=== PATIENT | male | born 1975 | race Caucasian/White ===

== ENCOUNTER 2016-09-30 12:40 | Emergency (ER) | payer MEDICAID, OTHER ==
[2016-09-30 12:40] VITALS: BMI 22.7
[2016-09-30 12:49] VITALS: BP 103/66; PULSE 91; RESP 18; TEMP 97.4; O2SAT 100
--- NOTE | 2016-09-30 13:10 | C.PDOC ---
History Of Present Illness 40 y/o male brought to ED by EMS for public intoxication. Patient denies any injury or pain on arrival. Denies suicidal ideation, homicidal ideation, or any other complaints. Time Seen by Provider: 09/30/16 13:07 Chief Complaint (Nursing): Substance Abuse History Per: Patient History/Exam Limitations: no limitations Current Symptoms Are (Timing): Still Present Modifying Factor(s): Alcohol Associated Symptoms: denies: Suicidal Thoughts, Suicidal Plan Recent travel outside of the [place]: No Past Medical History Reviewed: Historical Data, Nursing Documentation, Vital Signs Vital Signs: Last Vital Signs Temp 97.4 F L 09/30/16 12:44 Pulse 91 H 09/30/16 12:44 Resp 18 09/30/16 12:44 BP 103/66 09/30/16 12:44 Pulse Ox 100 09/30/16 13:10 - Medical History PMH: Depression, Schizophrenia - [facility] Procedures INDIVID PSYCHOTHERAP NEC (12/29/13) OTHER GROUP THERAPY (12/29/13) PSYCHIAT DRUG THERAP NEC (01/22/14) Family History: States: Unknown Family Hx - Social History Hx Tobacco Use: No (DENIES) Hx Alcohol Use: Yes Hx Substance Use: No (DENIES) Review Of Systems Except As Marked, All Systems Reviewed And Found Negative. Constitutional: Negative for: Fever Cardiovascular: Negative for: Chest Pain, Palpitations Respiratory: Negative for: Cough, Shortness of Breath Skin: Negative for: Rash Neurological: Negative for: Headache, Dizziness Physical Exam - Physical Exam Appears: Non-toxic, No Acute Distress, Other (mildly intoxicated, interacting, no acute distress) Skin: Warm, Dry Head: Atraumatic, Normacephalic Chest: Symmetrical Cardiovascular: Rhythm Regular Respiratory: Normal Breath Sounds, No Rales, No Rhonchi, No Wheezing Gastrointestinal/Abdominal: Soft, No Tenderness Back: Normal Inspection Extremity: Normal ROM Neurological/Psych: Oriented x3 ED Course And Treatment O2 Sat by Pulse Oximetry: 100 (RA) Pulse Ox Interpretation: Normal Medical Decision Making Medical Decision Making: persistent etoh abuse. declines etoh detox today has a penitentiary to go to [facility]. List given for other penitentiary options. Disposition Doctor Will See Patient In The: Office Counseled Patient/Family Regarding: Studies Performed, Diagnosis - Disposition Referrals: Alcoholics Anonymous [Outside] [facility] at [facility] [Outside] [facility] [Outside] Disposition: HOME/ ROUTINE Disposition Time: 13:10 Condition: GOOD Additional Instructions: seek local penitentiary placement, lists given. Instructions: Abuse of Alcohol (ED) - Clinical Impression Clinical Impression: Alcohol abuse - Scribe Statement The provider has reviewed the documentation as recorded by the Scribe Yosi Ross Provider Attestation: Provider Scribe Attestation: All medical record entries made by the Scribe were at my direction and personally dictated by me. I have reviewed the chart and agree that the record accurately reflects my personal performance of the history, physical exam, medical decision making, and the department course for this patient. I have also personally directed, reviewed, and agree with the discharge instructions and disposition.
== END 2016-09-30 13:25 | disposition home or self-care (01) ==
LOC: C.ER 12:40
DX: F10.10 Alcohol abuse, uncomplicated (principal)

== ENCOUNTER 2017-08-28 01:42 | Emergency (ER) | payer MEDICAID, OTHER ==
[2017-08-28 01:42] VITALS: BMI 22.7
[2017-08-28 02:47] VITALS: O2SAT 97
--- NOTE | 2017-08-28 03:32 | C.PDOC ---
History Of Present Illness 41 year old male with hx of alcohol abuse presents to the ED brought in by his mother for alcohol detox. Per mother, patient has been staying with her for the past 2 weeks and has not had a drink in that time until last night. Patient denies any complaints at this time. Last drink last night. Time Seen by Provider: 08/28/17 02:51 Chief Complaint (Nursing): Substance Abuse History Per: Patient, Family History/Exam Limitations: no limitations Onset/Duration Of Symptoms: Hrs, Unknown Suicide/Self Injury Attempted (Context): None Modifying Factor(s): Alcohol Associated Symptoms: denies: Suicidal Thoughts, Suicidal Plan Involuntary Hold By: None Recent travel outside of the [place]: No Past Medical History Reviewed: Historical Data, Nursing Documentation, Vital Signs Vital Signs: Last Vital Signs Temp 97.6 F 08/28/17 02:41 Pulse 72 08/28/17 02:41 Resp 20 08/28/17 02:41 BP 104/63 08/28/17 02:41 Pulse Ox 97 08/28/17 04:06 - Medical History PMH: Depression, Schizophrenia Denies: Diabetes, Hepatitis, HIV, HTN, Seizures, Sexually Transmitted Disease - [facility] Procedures INDIVID PSYCHOTHERAP NEC (12/29/13) OTHER GROUP THERAPY (12/29/13) PSYCHIAT DRUG THERAP NEC (01/22/14) Family History: States: Unknown Family Hx - Social History Hx Tobacco Use: No (DENIES) Hx Alcohol Use: Yes Hx Substance Use: No (DENIES) Review Of Systems Constitutional: Negative for: Fever, Chills ENT: Negative for: Ear Pain, Throat Pain Cardiovascular: Negative for: Chest Pain Respiratory: Negative for: Cough, Shortness of Breath Gastrointestinal: Negative for: Nausea, Vomiting, Abdominal Pain, Diarrhea Skin: Negative for: Rash Neurological: Negative for: Headache Psych: Positive for: Other (Alcohol intoxication). Negative for: Suicidal ideation Physical Exam - Physical Exam Appears: Non-toxic, No Acute Distress, Unkempt (disheveled) Skin: Normal Color, Warm, Dry Head: Atraumatic, Normacephalic Eye(s): bilateral: Normal Inspection, PERRL, EOMI Oral Mucosa: Moist Neck: Normal ROM, Supple Chest: Symmetrical Cardiovascular: Rhythm Regular Respiratory: Normal Breath Sounds, No Rales, No Rhonchi, No Wheezing Back: Normal Inspection Extremity: Normal ROM, No Deformity Extremity: Bilateral: Atraumatic Neurological/Psych: Oriented x3, Normal Speech Gait: Steady ED Course And Treatment O2 Sat by Pulse Oximetry: 97 Pulse Ox Interpretation: Normal Progress Note: Spoke with detox; there are no beds available. Pt remained stable. Will give patient number for crisis in order to be pre screened for detox. Pt d/c in company of his mother Disposition Counseled Patient/Family Regarding: Diagnosis, Need For Followup, Rx Given - Disposition Disposition: HOME/ ROUTINE Disposition Time: 04:08 Condition: STABLE Additional Instructions: PLEASE CALL [phone] TO BE PLACED ON LIST FOR DETOX BED RETURN TO ER IF WORSE Instructions: Effects of Alcohol on Your Health Forms: [facility] (Lithuanian) Print Language: MACEDONIAN - Clinical Impression Clinical Impression: Alcohol abuse - Scribe Statement The provider has reviewed the documentation as recorded by the Scribe (Jhony Copeland) All medical record entries made by the Scribe were at my direction and personally dictated by me. I have reviewed the chart and agree that the record accurately reflects my personal performance of the history, physical exam, medical decision making, and the department course for this patient. I have also personally directed, reviewed, and agree with the discharge instructions and disposition.
[2017-08-28 07:16] VITALS: BP 130/70; PULSE 80; RESP 14; TEMP 97.5
== END 2017-08-28 05:30 | disposition home or self-care (01) ==
LOC: C.ER 01:42
DX: F10.10 Alcohol abuse, uncomplicated (principal)

== ENCOUNTER 2017-09-30 06:01 | Emergency (ER) | payer MEDICAID, OTHER ==
[2017-09-30 06:01] VITALS: BMI 22.7
[2017-09-30 06:08] VITALS: RESP 18; TEMP 98.2
--- NOTE | 2017-09-30 07:32 | C.PDOC ---
History Of Present Illness 41 y/o male brought to ER by ambulance for public intoxication. Patient was found in the street with soiled clothing and baggage. Patient admits to drinking alcohol today, but denies physical complaints. Her denies suicidal/ homicidal ideations. Time Seen by Provider: 09/30/17 07:05 Chief Complaint (Nursing): Substance Abuse History Per: Patient History/Exam Limitations: no limitations Onset/Duration Of Symptoms: Hrs Current Symptoms Are (Timing): Still Present Modifying Factor(s): Alcohol Severity: Moderate Past Medical History Reviewed: Historical Data, Nursing Documentation, Vital Signs Vital Signs: Last Vital Signs Temp 98.2 F 09/30/17 06:04 Pulse 82 09/30/17 14:15 Resp 18 09/30/17 14:15 BP 102/61 09/30/17 14:15 Pulse Ox 97 09/30/17 14:20 - Medical History PMH: Depression, Schizophrenia Surgical History: No Surg Hx - [facility] Procedures INDIVID PSYCHOTHERAP NEC (12/29/13) OTHER GROUP THERAPY (12/29/13) PSYCHIAT DRUG THERAP NEC (01/22/14) Family History: States: No Known Family Hx - Social History Hx Tobacco Use: No (DENIES) Hx Alcohol Use: Yes Hx Substance Use: No (DENIES) Review Of Systems Except As Marked, All Systems Reviewed And Found Negative. Cardiovascular: Negative for: Chest Pain Respiratory: Negative for: Shortness of Breath Neurological: Negative for: Headache Psych: Positive for: Other (alcoho intoxication). Negative for: Suicidal ideation Physical Exam - Physical Exam Appears: Non-toxic, Other (smells of ETOH and appears intoxicated) Skin: Normal Color, Warm Head: Atraumatic, Normacephalic Eye(s): bilateral: Normal Inspection, PERRL, EOMI Nose: Normal Oral Mucosa: Moist Neck: Normal, Normal ROM, No Midline Cervical Tenderness, No Paracervical Tenderness, No Step Off Deformity, Supple Cardiovascular: Rhythm Regular Respiratory: Normal Breath Sounds, No Rales, No Rhonchi, No Wheezing Gastrointestinal/Abdominal: Normal Exam, Bowel Sounds, Soft, No Tenderness Extremity: Normal ROM Extremity: Bilateral: Atraumatic, Normal Color And Temperature, Normal ROM Neurological/Psych: Other (awake, alert, intoxicated, moving all 4 extremities spontaneously) ED Course And Treatment O2 Sat by Pulse Oximetry: 97 (RA) Pulse Ox Interpretation: Normal Progress Note: Accucheck ordered and reviewed. Patient pending sobriety. 9: 30am - Patient arousable to verbal stimuli. Pending sobriety. 11:45am - Patient sleeping on stretcher, intoxicated, arousable to verbal stimuli Reevaluation Time: 14:15 Reassessment Condition: Improved (Patient currently AAOx3, ambulating normally in ED. Patient clinically sober at this time, will discharge.) Disposition - Disposition Disposition: HOME/ ROUTINE Disposition Time: 14:15 Condition: STABLE Instructions: Alcohol Abuse and Alcoholism (DC) Forms: [facility] (Urdu), General Discharge Instructions Print Language: PORTUGUESE - Clinical Impression Clinical Impression: Alcohol abuse with intoxication - Scribe Statement The provider has reviewed the documentation as recorded by the Leenaibe Gabriela Lion Provider Attestation: All medical record entries made by the Scribe were at my direction and personally dictated by me. I have reviewed the chart and agree that the record accurately reflects my personal performance of the history, physical exam, medical decision making, and the department course for this patient. I have also personally directed, reviewed, and agree with the discharge instructions and disposition.
[2017-09-30 14:16] VITALS: BP 102/61; PULSE 82
[2017-09-30 14:20] VITALS: O2SAT 97
== END 2017-09-30 14:25 | disposition home or self-care (01) ==
LOC: SUPCPDRO 06:01 → C.ER 06:01
DX: F10.129 Alcohol abuse with intoxication, unspecified (principal); Y90.9 Presence of alcohol in blood, level not specified

== ENCOUNTER 2018-08-19 20:23 | Emergency (ER) | payer MEDICAID, OTHER ==
[2018-08-19 20:25] VITALS: BMI 22.7
--- NOTE | 2018-08-19 21:22 | C.PDOC ---
History Of Present Illness 42 year old male is brought into the emergency department via ambulance for intoxication at homeless residential. Patient was told that he could not stay at the residential due to his intoxication. Limited history. Time Seen by Provider: 08/19/18 20:32 Chief Complaint (Nursing): Substance Abuse History Per: Patient History/Exam Limitations: intoxication Onset/Duration Of Symptoms: Hrs Current Symptoms Are (Timing): Still Present Modifying Factor(s): Alcohol Additional History Per: EMS Past Medical History Reviewed: Historical Data, Nursing Documentation, Vital Signs Vital Signs: Last Vital Signs Temp 98.6 F 08/19/18 20:30 Pulse 88 08/19/18 20:30 Resp 18 08/19/18 20:30 BP 128/79 08/19/18 20:30 Pulse Ox 96 08/19/18 20:30 - Medical History PMH: Depression, Schizophrenia Denies: Diabetes, Hepatitis, HIV, HTN, Seizures, Sexually Transmitted Disease Surgical History: No Surg Hx - [facility] Procedures INDIVID PSYCHOTHERAP NEC (12/29/13) OTHER GROUP THERAPY (12/29/13) PSYCHIAT DRUG THERAP NEC (01/22/14) Family History: States: Unknown Family Hx - Social History Hx Tobacco Use: No (DENIES) Hx Alcohol Use: Yes Hx Substance Use: No (DENIES) Review Of Systems Review Of Systems: ROS cannot be obtained secondary to pt's inabilty to answer questions. Physical Exam - Physical Exam Appears: Non-toxic, No Acute Distress, Other (stuperous, soaked in urine) Skin: Normal Color, Warm, Dry Head: Atraumatic, Normacephalic Eye(s): bilateral: Normal Inspection, PERRL, EOMI Oral Mucosa: Moist, Other (alcohol on breath) Throat: Normal, No Erythema, No Exudate Neck: Normal, Supple Chest: Symmetrical, No Tenderness Cardiovascular: Rhythm Regular, No Murmur Respiratory: Normal Breath Sounds, No Rales, No Rhonchi, No Wheezing Gastrointestinal/Abdominal: Soft, No Tenderness Neurological/Psych: Oriented x3 Gait: Unsteady ED Course And Treatment O2 Sat by Pulse Oximetry: 96 (RA) Pulse Ox Interpretation: Normal Reevaluation Time: 06:00 (noted eloped from ED) Medical Decision Making Medical Decision Making: Plan; Glucose POC Disposition Doctor Will See Patient In The: Office Counseled Patient/Family Regarding: Studies Performed, Diagnosis - Disposition Disposition: HOME/ ROUTINE Disposition Time: 06:00 Condition: GOOD Forms: [facility] (Turkish) - Clinical Impression Clinical Impression: Alcohol abuse with intoxication - Scribe Statement The provider has reviewed the documentation as recorded by the Scribe (Abdirashid Roberts) Provider Attestation: All medical record entries made by the Scribe were at my direction and personally dictated by me. I have reviewed the chart and agree that the record accurately reflects my personal performance of the history, physical exam, medical decision making, and the department course for this patient. I have also personally directed, reviewed, and agree with the discharge instructions and disposition.
[2018-08-20 00:40] VITALS: RESP 16
[2018-08-20 04:26] VITALS: BP 112/72; PULSE 82; TEMP 97.9
[2018-08-20 06:01] VITALS: O2SAT 96
== END 2018-08-20 05:50 | disposition home or self-care (01) ==
LOC: C.ER 20:23
DX: F10.129 Alcohol abuse with intoxication, unspecified (principal); F20.9 Schizophrenia, unspecified

== ENCOUNTER 2018-09-23 22:52 | Emergency (ER) | payer SELFPAY ==
[2018-09-23 22:52] VITALS: BMI 22.7
--- NOTE | 2018-09-23 23:14 | C.PDOC ---
History Of Present Illness 42 year old male presents to the ED via EMS after [facility] jail sleeping. Patient notes currently under the influence of alcohol. He denies any trauma or fall. Patient denies any active complaints at this time. Time Seen by Provider: 09/23/18 22:57 Chief Complaint (Nursing): Substance Abuse History Per: Patient History/Exam Limitations: intoxication Onset/Duration Of Symptoms: Hrs Current Symptoms Are (Timing): Still Present Suicide/Self Injury Attempted (Context): None Modifying Factor(s): Alcohol Associated Symptoms: denies: Suicidal Thoughts, Suicidal Plan Additional History Per: EMS Past Medical History Reviewed: Historical Data, Nursing Documentation, Vital Signs Vital Signs: Last Vital Signs Temp 98.5 F 09/23/18 23:01 Pulse 81 09/23/18 23:01 Resp 16 09/23/18 23:01 BP 138/88 09/23/18 23:01 Pulse Ox 98 09/23/18 23:01 - Medical History PMH: Depression, Schizophrenia Denies: Diabetes, Hepatitis, HIV, HTN, Chronic Kidney Disease, Seizures, Sexually Transmitted Disease Surgical History: No Surg Hx - [facility] Procedures INDIVID PSYCHOTHERAP NEC (12/29/13) OTHER GROUP THERAPY (12/29/13) PSYCHIAT DRUG THERAP NEC (01/22/14) Family History: States: No Known Family Hx - Social History Hx Tobacco Use: No (DENIES) Hx Alcohol Use: Yes Hx Substance Use: No (DENIES) Review Of Systems Constitutional: Negative for: Fever Cardiovascular: Negative for: Chest Pain Respiratory: Negative for: Cough, Shortness of Breath Gastrointestinal: Negative for: Nausea, Vomiting, Abdominal Pain, Diarrhea Neurological: Positive for: Other (alcohol intoxication) Physical Exam - Physical Exam Appears: Non-toxic, No Acute Distress Skin: Normal Color, Warm, Dry Head: Atraumatic, Normacephalic Eye(s): bilateral: Normal Inspection, PERRL, EOMI Nose: Normal, No Flaring, No Discharge, No Septal Hematoma Oral Mucosa: Moist, Other (alcohol on breath) Tongue: Normal Appearing Throat: Normal, No Erythema, No Exudate, No Drooling Neck: Normal, Supple Chest: Symmetrical Cardiovascular: Rhythm Regular, No Murmur Respiratory: Normal Breath Sounds, No Rales, No Rhonchi, No Wheezing Gastrointestinal/Abdominal: Soft, No Tenderness, No Guarding, No Rebound Back: Normal Inspection, No CVA Tenderness, No Vertebral Tenderness Extremity: Normal ROM Neurological/Psych: Oriented x3 ED Course And Treatment - Laboratory Results Result Diagrams: 09/23/18 23:24 09/23/18 23:24 O2 Sat by Pulse Oximetry: 98 (RA) Pulse Ox Interpretation: Normal Medical Decision Making Medical Decision Makin42 year old male presents to the ED via EMS after being found outside the jail sleeping. No meningeal signs or signs of trauma on exam. No rash noted. Plan: Chemistry CBC Glucose POC Intoxicated on exam alcohol on breath No meningeal signs Afebrile, atraumatic exam. etoh 387, will likely require reasessment upon clinical sobreity [address] Law pending clinical sobreity Disposition - Disposition Disposition: HOME/ ROUTINE Disposition Time: 01:00 Condition: STABLE Forms: [facility] (Cymraes) - Clinical Impression Clinical Impression: Alcohol intoxication - Scribe Statement The provider has reviewed the documentation as recorded by the Scribe (Abdirashid Roberts) Provider Attestation: All medical record entries made by the Scribe were at my direction and personally dictated by me. I have reviewed the chart and agree that the record accurately reflects my personal performance of the history, physical exam, medical decision making, and the department course for this patient. I have also personally directed, reviewed, and agree with the discharge instructions and disposition.
[2018-09-23 23:29] LABS: BASO # 0.1 K/uL (0.0-0.2); BASO % 0.6 % (0.0-2.0); EOS # 0.1 K/uL (0.0-0.7); EOS % 1.1 % (0.0-4.0); LYMPH # 1.4 K/uL (1.0-4.3); LYMPH % 13.7 % (20.0-40.0); MEAN CELL VOLUME 103.6 fL (80.0-94.0); MEAN CORPUSCULAR HEMOGLOBIN 35.7 pg (27.0-31.0); MEAN CORPUSCULAR HGB CONC 34.5 g/dL (33.0-37.0); MONO # 0.8 K/uL (0.0-0.8); MONO % 7.8 % (0.0-10.0); NEUT # 7.9 K/uL (1.8-7.0); NEUT % 76.8 % (50.0-75.0); RBC 4.48 Mil/uL (4.40-5.90); RED CELL DISTRIBUTION WIDTH 13.1 % (11.5-14.5); WHITE BLOOD COUNT 10.2 K/uL (4.8-10.8)
[2018-09-23 23:39] LABS: ACETAMINOPHEN < 10.0 ug/mL (10.0-30.0); SALICYLATE < 1.0 {null, mg/dL 1}
[2018-09-23 23:40] LABS: ALB/GLOB RATIO 1.7 (1.0-2.1); ALBUMIN 4.5 g/dL (3.5-5.0); ALT/SGPT 22 U/L (21-72); AST/SGOT 30 U/L (17-59); BLOOD UREA NITROGEN 11 mg/dL (9-20); CALCIUM 9.2 mg/dl (8.6-10.4); GFR NON-AFRICAN AMERICAN > 60
[2018-09-24 06:04] VITALS: BP 110/60; PULSE 88; RESP 18; TEMP 98; O2SAT 98
== END 2018-09-24 06:14 | disposition home or self-care (01) ==
LOC: C.ER 22:52
DX: F10.129 Alcohol abuse with intoxication, unspecified (principal); Y90.8 Blood alcohol level of 240 mg/100 ml or more
CPT/HCPCS: 80053; 82948; 84100; 85025; 99284; G0480

== ENCOUNTER 2018-11-18 00:45 | Emergency (ER) | payer SELFPAY ==
[2018-11-18 01:10] VITALS: RESP 16
--- NOTE | 2018-11-18 01:14 | C.PDOC ---
History Of Present Illness 59 year old male [place] in [place] laying on the floor with slurred speech and unsteady gait. Chief Complaint (Nursing): Substance Abuse History Per: EMS History/Exam Limitations: intoxication Onset/Duration Of Symptoms: Hrs Current Symptoms Are (Timing): Still Present Modifying Factor(s): Alcohol Recent travel outside of the [place]: No Past Medical History Reviewed: Historical Data, Nursing Documentation, Vital Signs Vital Signs: Last Vital Signs Temp 97.9 F 11/18/18 00:51 Pulse 86 11/18/18 00:51 Resp 16 11/18/18 00:51 BP 119/81 11/18/18 00:51 Pulse Ox 97 11/18/18 00:51 Primary Care Provider: FAMILY PROVIDER,NO Family History: States: No Known Family Hx - Social History Hx Alcohol Use: Yes Hx Substance Use: No - Immunization History Hx Tetanus Toxoid Vaccination: No Hx Influenza Vaccination: No Hx Pneumococcal Vaccination: No Review Of Systems Review Of Systems: ROS cannot be obtained secondary to pt's inabilty to answer questions. (Intoxicated) Physical Exam - Physical Exam Appears: Non-toxic, Other (ETOH on breath, no sign of injury) Skin: Normal Color, Warm Head: Atraumatic, Normacephalic Eye(s): bilateral: Normal Inspection Oral Mucosa: Moist Neck: Normal, Supple Chest: Symmetrical, No Tenderness Cardiovascular: Rhythm Regular Respiratory: Normal Breath Sounds, No Rales, No Rhonchi, No Wheezing Gastrointestinal/Abdominal: Soft, No Tenderness Neurological/Psych: Other (Arousable, Neuro intact.) ED Course And Treatment - Laboratory Results Result Diagrams: 11/18/18 01:31 11/18/18 01:31 O2 Sat by Pulse Oximetry: 97 (room air) Pulse Ox Interpretation: Normal Progress Note: Blood work and urinalysis ordered. Disposition Counseled Patient/Family Regarding: Diagnosis - Disposition Referrals: [facility] at [facility] [Outside] Disposition: HOME/ ROUTINE Disposition Time: 06:30 Condition: STABLE Prescriptions: Potassium Chloride 20 meq PO DAILY #10 [email or web address] Instructions: Alcohol Abuse and Alcoholism (DC), Hypokalemia (DC) Forms: [facility] (Albanian) - POA Present On Arrival: None - Clinical Impression Clinical Impression: Alcohol abuse, Hypokalemia - Scribe Statement The provider has reviewed the documentation as recorded by the Scribe Ravinder Hernandez All medical record entries made by the Nabeel were at my direction and personally dictated by me. I have reviewed the chart and agree that the record accurately reflects my personal performance of the history, physical exam, medical decision making, and the department course for this patient. I have also personally directed, reviewed, and agree with the discharge instructions and disposition.
[2018-11-18 01:34] LABS: BASO % 0.5 % (0.0-2.0); EOS # 0.3 K/uL (0.0-0.7); EOS % 3.3 % (0.0-4.0); LYMPH # 1.5 K/uL (1.0-4.3); MEAN CORPUSCULAR HEMOGLOBIN 34.8 pg (27.0-31.0); MEAN CORPUSCULAR HGB CONC 34.8 g/dL (33.0-37.0); MEAN PLATELET VOLUME 8.3 fL (7.2-11.7); MONO # 0.6 K/uL (0.0-0.8); MONO % 6.8 % (0.0-10.0); NEUT # 5.7 K/uL (1.8-7.0); NEUT % 70.4 % (50.0-75.0); RBC 3.73 Mil/uL (4.40-5.90); RED CELL DISTRIBUTION WIDTH 12.8 % (11.5-14.5); WHITE BLOOD COUNT 8.1 K/uL (4.8-10.8)
[2018-11-18 01:38] LABS: URINE BILIRUBIN NEGATIVE (NEGATIVE); URINE BLOOD NEGATIVE (NEGATIVE); URINE CLARITY Clear (Clear); URINE COLOR Straw (YELLOW); URINE GLUCOSE (UA) NORMAL (Normal); URINE LEUKOCYTE ESTERASE NEG Leu/uL (Negative); URINE PROTEIN NEGATIVE (NEGATIVE); URINE UROBILINOGEN NORMAL mg/dL (0.2-1.0)
[2018-11-18 01:51] LABS: BARBITURATES, UR NEGATIVE (NEGATIVE); BENZODIAZEPINES, UR NEGATIVE (NEGATIVE); OPIATES, UR NEGATIVE (NEGATIVE); PHENCYCLIDINE, UR NEGATIVE (NEGATIVE)
[2018-11-18 01:53] LABS: ALB/GLOB RATIO 1.5 (1.0-2.1); ALBUMIN 3.9 g/dL (3.5-5.0); ALT/SGPT 25 U/L (21-72); AST/SGOT 31 U/L (17-59); BLOOD UREA NITROGEN 15 mg/dL (9-20); GFR NON-AFRICAN AMERICAN > 60
[2018-11-18] MEDS ORDERED: Potassium Chloride 20 mEq/15 ml LIQ UD PO STA (01:57)
[2018-11-18] MEDS ORDERED: Potassium Chloride 20 mEq/15 ml LIQ UD ONE (05:44)
[2018-11-18 05:52] VITALS: BP 112/86; PULSE 82; TEMP 98; O2SAT 98
== END 2018-11-18 06:44 | disposition home or self-care (01) ==
LOC: MERGE 00:45 → C.ER 00:45 → EDBD 00:45 → C.ER 06:44
DX: F10.10 Alcohol abuse, uncomplicated (principal); Y90.8 Blood alcohol level of 240 mg/100 ml or more; E87.6 Hypokalemia
CPT/HCPCS: 80053; 81001; 82948; 85025; 99284; G0480